=== PATIENT | male | born 1980 ===

== ENCOUNTER 2018-08-19 13:18 | Emergency (ER) | payer OTHER, SELFPAY ==
[2018-08-19 13:18] VITALS: BMI 32.1
[2018-08-19 13:23] VITALS: BP 133/77; PULSE 67; RESP 16; TEMP 98.2; O2SAT 99
--- NOTE | 2018-08-19 13:45 | ED PDOC ---
Upper Extremity Pain/Injury Time Seen by Provider: 08/19/18 13:31 Chief Complaint (Nursing): Upper Extremity Problem/Injury Chief Complaint (Provider): Upper Extremity Pain History Per: Patient History/Exam Limitations: no limitations Onset/Duration Of Symptoms: Days (3x weeks) Current Symptoms Are (Timing): Still Present Quality: Tightness Severity: Moderate Additional Complaint(s): 37 year old male with no past medical history presents to the ED for an evaluation of atraumatic left shoulder pain ongoing for 3x weeks. Patient denies heavy lifting, but states that the tightness in his shoulder prevents him for doing daily activities. Patient denies having any falls or taking medications for pain. PMD: None provided. Past Medical History Reviewed: Historical Data, Nursing Documentation Vital Signs: Last Vital Signs Temp 98.2 F 08/19/18 13:23 Pulse 67 08/19/18 13:23 Resp 16 08/19/18 13:23 BP 133/77 08/19/18 13:23 Pulse Ox 99 08/19/18 13:23 YOAN Report Viewed: Yes - Medical History PMH: No Chronic Diseases Denies: HIV, Chronic Kidney Disease - Surgical History Other surgeries: right foot surgery 2017 - Family History Family History: States: No Known Family Hx - Social History Current smoker - smoking cessation education provided: No Alcohol: None Drugs: Denies - Home Medications Home Medications: Ambulatory Orders Medication Instructions Recorded Cephalexin [cephalexin] 500 mg PO TID 10/18/17 oxyCODONE/Acetaminophen [Percocet 5 - 325 mg PO Q4 PRN 10/18/17 5/325 mg Tab] Naproxen 375 mg PO Q8 PRN #21 tablet 08/19/18 - Allergies Allergies/Adverse Reactions: Allergies Allergy/AdvReac Type Severity Reaction Status Date / Time No Known Allergies Allergy Verified 10/18/17 09:31 Review of Systems ROS Statement: Except As Marked, All Systems Reviewed And Found Negative Musculoskeletal: Positive for: Shoulder Pain (left shoulder) Physical Exam - Reviewed Nursing Documentation Reviewed: Yes Vital Signs Reviewed: Yes - Physical Exam Appears: Positive for: Well, Non-toxic, No Acute Distress Head Exam: Positive for: ATRAUMATIC, NORMOCEPHALIC Skin: Positive for: Normal Color, Warm, Dry Extremity: Positive for: Other (left shoulder: (-) bony tenderness. Patient note s pain along the posterior aspect of arm and front of arm by pectoral region. Full ROM of left shoulder with slight limitation due to pain.) Neurologic/Psych: Positive for: Alert, Oriented (3x) - ECG O2 Sat by Pulse Oximetry: 99 (RA) Pulse Ox Interpretation: Normal Medical Decision Making Medical Decision Makin:31 Initial impression: 37 year old male with shoulder pain. Initial plan: * XRay shoulder left * reevaluation Scribe Attestation: Documented byEtta Nathan, acting as a scribe for Ana Luisa Howard PA-C. Provider Scribe Attestation: All medical record entries made by the Scribe were at my direction and personally dictated by me. I have reviewed the chart and agree that the record accurately reflects my personal performance of the history, physical exam, medical decision making, and the department course for this patient. I have also personally directed, reviewed, and agree with the discharge instructions and disposition. Disposition - Clinical Impression Clinical Impression: Shoulder pain - Patient ED Disposition Is Patient to be Admitted: No - Disposition Referrals: [facility] [Outside] Disposition: Routine/Home Disposition Time: 13:51 Condition: FAIR Prescriptions: Naproxen 375 mg PO Q8 PRN #21 tablet PRN Reason: Pain, Moderate (4-7) Instructions: Shoulder Pain (DC) Forms: [facility] ED School/Work Excuse Print Language: WOLOF
--- NOTE | 2018-08-19 14:39 | RAD ---
Date of service: 08/19/2018 PROCEDURE: Radiographs of the Left Shoulder HISTORY: Shoulder pain/injury COMPARISON: No prior. FINDINGS: BONES: Normal. No fracture. JOINTS: Normal. Glenohumeral and acromioclavicular joints preserved. No osteoarthritis. SOFT TISSUES: Normal. OTHER FINDINGS: None. IMPRESSION: Normal radiographs of the left shoulder.
== END 2018-08-19 14:17 | disposition home or self-care (01) ==
LOC: H.ER 13:18
DX: M25.512 Pain in left shoulder (principal)

== ENCOUNTER 2018-09-03 17:30 | Emergency (ER) | payer SELFPAY ==
[2018-09-03 17:30] VITALS: BMI 32.1
[2018-09-03 18:49] VITALS: BP 127/75; PULSE 62; RESP 18; TEMP 98.3; O2SAT 99
--- NOTE | 2018-09-03 19:31 | ED PDOC ---
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 Patient states that he was here last week for the same complaint where they did x-rays and was discharged as x-rays were normal. He reports that he has been taking medications without relief in symptoms and admits that he last took medications on (4 days ago). Patient reports pain scale of 8/10 and admits that pain is worse with movement and lifting arm. He denies any falls or trauma. 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 PMD: none provided Past Medical History Reviewed: Historical Data, Nursing Documentation, Vital Signs Vital Signs: Last Vital Signs Temp 98.3 F 09/03/18 18:45 Pulse 62 09/03/18 18:45 Resp 18 09/03/18 18:45 BP 127/75 09/03/18 18:45 Pulse Ox 99 09/03/18 18:45 - Medical History PMH: No Chronic Diseases - Surgical History Surgical History: No Surg Hx - Family History Family History: States: Unknown Family Hx - Social History Current smoker - smoking cessation education provided: No Alcohol: None Drugs: Denies - Home Medications Home Medications: Ambulatory Orders Medication Instructions Recorded Cephalexin [cephalexin] 500 mg PO TID 10/18/17 oxyCODONE/Acetaminophen [Percocet 5 - 325 mg PO Q4 PRN 10/18/17 5/325 mg Tab] RX: Naproxen 375 mg PO Q8 PRN #21 tablet 08/19/18 Acetaminophen [Acetaminophen 8 650 mg PO Q8 PRN #21 tablet.er 09/03/18 Hour] Meloxicam [Mobic] 15 mg PO DAILY PRN #10 tab 09/03/18 - Allergies Allergies/Adverse Reactions: Allergies Allergy/AdvReac Type Severity Reaction Status Date / Time No Known Allergies Allergy Verified 09/03/18 18:49 Review of Systems ROS Statement: Except As Marked, All Systems Reviewed And Found Negative Musculoskeletal: Positive for: Shoulder Pain Physical Exam - Reviewed Nursing Documentation Reviewed: Yes Vital Signs Reviewed: Yes - Physical Exam Comments: GENERAL APPEARANCE: Patient is awake, alert, oriented x 3, in no acute distress. SKIN: Warm, dry; (-) cyanosis ENMT: Mucous membranes moist. Airway patent: (-) stridor. NECK: Supple, FROM (-) tenderness HEART AND CARDIOVASCULAR: (-) irregularity CHEST AND RESPIRATORY: (-) rales, (-) rhonchi, (-) wheezes; breath sounds equal. Respirations even and nonlabored. EXTREMITY: (+) decreased ROM of left shoulder secondary to pain, (+) diffuse tenderness to shoulder, (-) effusion (-) crepitus (-) erythema (-) ecchymosis (- ) palpable deformity. Remainder of upper extremity nontender with sensation and cap fill intact. (+) supervisor carbon electrodes strength equal bilaterally. NEURO AND PSYCH: Mental status as above. Gait: steady. Speech: clear. (-) facial asymmetry - ECG O2 Sat by Pulse Oximetry: 99 (RA) Pulse Ox Interpretation: Normal Medical Decision Making Medical Decision Making: Time: 19:15 Impression: Acute left shoulder pain, probable tendonitis Plan: --Toradol 60 mg IM --re-evaluation X-Ray From Previous Visit (08/19/18): FINDINGS: BONES: Normal. No fracture. JOINTS: Normal. Glenohumeral and acromioclavicular joints preserved. No osteoarthritis. SOFT TISSUES: Normal. OTHER FINDINGS: None. IMPRESSION: Normal radiographs of the left shoulder. 1945 On re-evaluation, patient reports improvement of symptoms. On exam, patient remains AAOx3, in no acute distress. Vitals stable. Lab/Diagnostic results d/w the patient in great detail. Diagnosis of acute shoulder pain, probable tendonitis d/w the patient. Based on history, exam and diagnostic results, plan will be for outpatient follow up with clinic/ortho. Patient instructed to follow-up with pmd / referral provided / the clinic in 1- 2 days without fail. Advised to take medication as prescribed. Return to the emergency room at any time for any new or worsening symptoms. Patient states he fully agrees with and understands discharge instructions. States that he agrees with the plan and disposition. Verbalized and repeated discharge instructions and plan. I have given the patient opportunity to ask any additional questions. Scribe Attestation: Documented by, Ling Casillas acting as a scribe for Etta Zeng PA-C. Provider Scribe Attestation: All medical record entries made by the Scribe were at my direction and personally dictated by me. I have reviewed the chart and agree that the record accurately reflects my personal performance of the history, physical exam, medical decision making, and the department course for this patient. I have also personally directed, reviewed, and agree with the discharge instructions and disposition. Disposition - Clinical Impression Clinical Impression: Acute pain of left shoulder, Tendonitis of shoulder, left, Sprain of shoulder, left - Patient ED Disposition Is Patient to be Admitted: No Counseled Patient/Family Regarding: Studies Performed, Diagnosis, Need For Followup, Rx Given - Disposition Referrals: Claudio Perez MD [Medical Doctor] - [facility] [Outside] Disposition: Routine/Home Disposition Time: 19:45 Condition: STABLE Additional Instructions: La atencin mdica de emergencia que recibi hoy se dirigi a keo sntomas agudos. Si le recetaron algn medicamento, llnelo y tmelo segn las indicaciones. Los sntomas pueden tardar varios braswell en resolverse. Regrese al Departamento de Emergencias si keo sntomas empeoran, no mejoran o si tiene otros problemas. Comunquese con ray mdico dentro de 2 braswell para jeremi nueva evaluacin y garcía un seguimiento o llame a ceferino de los mdicos / clnicas a los que bearden sido referido y que figuran en el formulario de Informacin de visita al paciente que se incluye en ray paquete de shira. Lleve todos los documentos que le entregaron al momento del shira junto con todos los medicamentos que est tomando para ray visita de seguimiento. Nuestro tratamiento no puede reemplazar la atencin mdica continua por parte de un proveedor de atencin primaria (PCP) fuera del departamento de emergencias. Prescriptions: Acetaminophen [Acetaminophen 8 Hour] 650 mg PO Q8 PRN #21 tablet.er PRN Reason: Pain, Moderate (4-7) Meloxicam [Mobic] 15 mg PO DAILY PRN #10 tab PRN Reason: Pain, Moderate (4-7) Instructions: Shoulder Sprain, Shoulder Tendinopathy (DC), Biceps Tendinopathy, Shoulder Pain (DC) Forms: [employer] (Kyrgyz) Print Language: SCOTTISH - POA Present On Arrival: None
== END 2018-09-03 20:10 | disposition home or self-care (01) ==
LOC: H.ER 17:30
DX: M75.22 Bicipital tendinitis, left shoulder (principal)
CPT/HCPCS: 96372; 99283; J1885